=== PATIENT | female | born 1965 | race Caucasian/White ===

== ENCOUNTER 2024-02-10 13:17 | Outpatient (CLI) | payer OTHER, SELFPAY ==
--- NOTE | 2024-02-10 13:30 | XR_ITS ---
WS: [id number] Lateral views of cervical spine in the flexion, extension and neutral positions. 02/10/2024 Clinical Data: CERVICALGIA Comparison: None. Findings: There is an anterior cervical disc fusion at C5-C6 with a disc spacer at the same level. There is ant erior osteoarthritic spurring at C3 and C4. There is reversal of the normal lordotic curvature at C2- C4. On flexion and extension there is no limitation of motion or instability in the fusion. There is no prevertebral soft tissue swelling. XR/XR cervical spine fl/ex [id number] Impression: 1. Stable anterior cervical disc fusion at C5-C6 with disc spacer. 2. 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 3. Reversal of normal lordotic curvature at C2-C4. 4. No instability of the fusion on flexion or extension.
== END 2024-02-10 13:18 | disposition home or self-care (01) ==
LOC: RAD 13:25
PROVIDERS: Visit Provider Nurse Practitioner
DX: M54.2 Cervicalgia (principal); M47.812 Spondylosis without myelopathy or radiculopathy, cervical region
CPT/HCPCS: 72040